=== PATIENT | female | born 1955 | race Caucasian/White ===

== ENCOUNTER 2018-08-12 00:13 | Emergency (ER) | payer OTHER ==
[~2018-08-12] VITALS: Ht 170.2 cm; Wt 68.0 kg
[~2018-08-12 00:13] MED LIST: ASCO500 PO; BUPR150T2 PO; CLON1 PO; CYCL10 PO; ERGO50000 PO; ESTR.1TPBW TOP; GABA800 PO; HYDR1TAB94 PO; IBUP400 PO; METO50ER PO; Multivitamin1 EAC1 PO; OMEP20ER PO; PARO20 PO; PRESERVISION A1 EACH PO; PROP60 PO; Percocet 5-3251 EACH PO; ZOLP10 PO
[2018-08-12 00:36] LABS: BASOPHILS ABSOLUTE AUTO 0.02 K/mm3 (0.00-0.23); BASOPHILS PERCENT AUTO 0 % (0-2); EOSINOPHILS ABSOLUTE AUTO 0.01 K/mm3 (0.00-0.68); EOSINOPHILS PERCENT AUTO 0 % (0-6); Hematocrit 42.6 % (33.0-51.0); Hemoglobin 14.3 g/dL (11.5-16.0); IMMATURE GRAN ABSOLUTE AUTO 0.03 K/mm3 (0.00-0.10); IMMATURE GRAN PERCENT AUTO 0 % (0-1); LYMPHOCYTES ABSOLUTE AUTO 0.85 K/mm3 (0.84-5.20); LYMPHOCYTES PERCENT AUTO 8 % (21-46); MONOCYTES ABSOLUTE AUTO 0.39 K/mm3 (0.16-1.47); MONOCYTES PERCENT AUTO 4 % (4-13); Mean Corpuscular HGB 32.2 pg (26.0-34.0); Mean Corpuscular HGB Conc 33.6 g/dL (31.5-36.5); Mean Corpuscular Volume 96 fL (80-100); Mean Platelet Volume 9.6 fL (9.1-12.4); NEUTROPHILS ABSOLUTE AUTO 8.76 K/mm3 (1.96-9.15); NEUTROPHILS PERCENT AUTO 87 % (41-73); Platelet Count 167 K/mm3 (150-400); RDW Coefficient Variation 12.6 % (11.7-14.2); RDW Standard Deviation 44.3 fL (35.1-46.3); Red Blood Cell Count 4.44 M/mm3 (3.80-5.20); White Blood Cell Count 10.06 K/mm3 (4.00-11.30)
[2018-08-12 00:53] LABS: Alanine Aminotransfer (ALT/SGP 18 U/L (12-78); Albumin, Blood 3.6 g/dL (3.4-5.0); Albumin/Globulin Ratio 0.9 (0.8-1.8); Alk Phos 164 U/L (50-136); Anion Gap 8 mmol/L (6-16); Aspartate Aminotrans (AST/SGOT 38 U/L (12-37); Bilirubin, Total 0.7 mg/dL (0.1-1.0); Blood Urea Nitrogen 8 mg/dL (8-24); Bun/Creatinine Ratio 12.3 (12.0-20.0); CO2, Blood 23 mmol/L (21-32); Calcium, Blood 8.5 mg/dL (8.5-10.1); Chloride, Blood 102 mmol/L (98-108); Creatinine, Blood 0.65 mg/dL (0.40-1.00); Globulin, Blood 3.9 g/dL (2.2-4.0); Glomerular Filtration Rate >60 (60-); Glucose, Blood 97 mg/dL (70-99); Potassium, Blood 4.8 mmol/L (3.5-5.5); Sodium, Blood 133 mmol/L (136-145); Total Protein, Blood 7.5 g/dL (6.4-8.2)
[2018-08-12 00:55] LABS: Influenza A Negative (NEGATIVE); Influenza B Negative (NEGATIVE)
[2018-08-12 01:37] LABS: Source, Urine Clean Catch
[2018-08-12 01:39] LABS: Bilirubin, Urine Neg (Neg); Blood, Urine 1+ (Neg); Glucose Qualitative, Urine Neg (Neg); Ketones, Urine 2+ (Neg); Leukocyte Esterase, Urine Neg (Neg); Nitrite, Urine Neg (Neg); Protein, Urine Neg (Neg); Specific Gravity, Urine 1.015 (1.003-1.022); Urobilinogen, Urine NORM (Normal)
[2018-08-12 01:44] LABS: Appearance, Urine Clear (Clear); Bacteria Rare /hpf; Color, Urine Yellow (P-Yellow); Red Blood Cells, Urine 0-2 /hpf (0-2); Squamous Epithelial Cells Rare /hpf (Few); White Blood Cells, Urine 0-2 /hpf (0-5)
== END 2018-08-12 02:27 | disposition home or self-care (01) ==
LOC: ER 00:13
PROVIDERS: Emergency Medicine
DX: R55 Syncope and collapse (principal); B34.9 Viral infection, unspecified; Z79.899 Other long term (current) drug therapy
CPT/HCPCS: 80053; 81001; 83690; 85025; 87804; 93005; 93010; 96360; 96361; 99284-25; J7030

== ENCOUNTER → 2019-11-30 | Outpatient (CLI) | payer OTHER ==
[2019-12-01 11:47] LABS: Candida species (DNA Probe) Negative (NEGATIVE); G. vaginalis (DNA Probe) Negative (NEGATIVE); T. vaginalis (DNA Probe) Negative (NEGATIVE)
== END | disposition home or self-care (01) ==
LOC: LAB SHORT 09:40 → LAB 09:40
PROVIDERS: Obstetrics & Gynecology
DX: N76.0 Acute vaginitis (principal)
CPT/HCPCS: 87480; 87510; 87660

== ENCOUNTER 2021-12-03 08:38 | Day surgery (SDC) | payer OTHER ==
[~2021-12-03] VITALS: Ht 160 cm; Wt 68.5 kg
[~2021-12-03 08:38] MED LIST changes: +AMLO5 PO; +GABA600 PO; +MOBIC15 MG PO; +NITR.4SL SL; +SUCR1 PO; +VENL150ER PO
[2021-12-03] MEDS ORDERED: CELE100 (08:56)
[2021-12-03] MEDS ORDERED: BUPR150ER (08:56)
== END 2021-12-03 10:35 | disposition home or self-care (01) ==
LOC: ORSCSDS 08:38
PROVIDERS: Student in an Organized Health Care Education/Training Program
PROC: 0D758ZZ Dilation of Esophagus, Via Natural or Artificial Opening Endoscopic (ICD-10-PCS; principal; 2021-12-03 13:15)
PROC: 0DB68ZX Excision of Stomach, Via Natural or Artificial Opening Endoscopic, Diagnostic (ICD-10-PCS; principal; 2021-12-03 13:15)
PROC: 0DB58ZX Excision of Esophagus, Via Natural or Artificial Opening Endoscopic, Diagnostic (ICD-10-PCS; principal; 2021-12-03 13:15)
DX: R13.10 Dysphagia, unspecified (principal); K29.70 Gastritis, unspecified, without bleeding; K21.9 Gastro-esophageal reflux disease without esophagitis; Z79.899 Other long term (current) drug therapy
CPT/HCPCS: 88305; 88342; J2704; J7120

== ENCOUNTER → 2023-10-30 | Outpatient (CLI) | payer OTHER ==
[~2023-10-30] MED LIST changes: +BUPR150ER; +CELE100; +PANTOPRAZOLE SO40 M2 PO
[2023-11-02 11:25] LABS: 6-ACETYLMORPHINE, URN, QUANT <10 ng/mL; CODEINE, URN, QUANT <20 ng/mL; HYDROCODONE, URN, QUANT 90 ng/mL; HYDROMORPHONE, URN, QUANT <20 ng/mL; MORPHINE, URN, QUANT <20 ng/mL; NORHYDROCODONE, URN, QUANT 501 ng/mL; NOROXYCODONE, URN, QUANT <20 ng/mL; NOROXYMORPHONE, URN, QUANT <20 ng/mL; OXYCODONE, URN, QUANT <20 ng/mL; OXYMORPHONE, URN, QUANT <20 ng/mL
== END ==
LOC: LAB 13:16 → LAB SHORT 13:16
PROVIDERS: Hospitalist
DX: Z51.81 Encounter for therapeutic drug level monitoring (principal); Z79.891 Long term (current) use of opiate analgesic
CPT/HCPCS: G0480

== ENCOUNTER 2024-10-06 07:46 | Day surgery (SDC) | payer OTHER ==
[~2024-10-06] VITALS: Ht 160 cm; Wt 71.4 kg
[~2024-10-06 07:46] MED LIST changes: +Balanced Salt Epinephrine Irrigation Solution 500 mL IR SCH; +Lidocaine HCl/Pf 1% 5 ML VIAL XX SCH; +Moxifloxacin HCL 0.5 MG/0.1 ML 0.4MLSYR RIGHTEYE SCH; +PHENYLEPHRINE\\TROPICAMIDE\\TETRACAINE OPHTHALMIC DILATING SOLN RIGHTEYE PRN; +Povidone-Iodine 450 DROP/30 ML Solution ONE; +Povidone-Iodine 450 DROP/30 ML Solution RIGHTEYE SCH; +Tetracaine HCl/Pf 0.5% Opth Soln 4 ml ONE; +Triamcinolone Inj Susp 40 MG / ML 1ML Vial INJ SCH; +Triamcinolone Inj Susp 40 MG / ML 1ML Vial ONE
[2024-10-06] MEDS ORDERED: OLMESARTAN MEDOX5 MG (08:23)
[2024-10-06] MEDS ORDERED: Midazolam HCl 1MG / ML 2ML Vial ONE (08:55)
[2024-10-06 09:23] VITALS: BP 127/75
== END 2024-10-06 09:38 | disposition home or self-care (01) ==
LOC: ORSCSDS 07:46
PROVIDERS: Ophthalmology
PROC: 08RJ3JZ Replacement of Right Lens with Synthetic Substitute, Percutaneous Approach (ICD-10-PCS; principal; 2024-10-06 09:00)
DX: H25.813 Combined forms of age-related cataract, bilateral (principal); I10 Essential (primary) hypertension; Z79.899 Other long term (current) drug therapy
CPT/HCPCS: J2250; J3301; V2632

== ENCOUNTER 2024-10-13 06:13 | Day surgery (SDC) | payer OTHER ==
[~2024-10-13] VITALS: Ht 157.5 cm; Wt 71.9 kg
[~2024-10-13 06:13] MED LIST changes: +Moxifloxacin HCL 0.5 MG/0.1 ML 0.4MLSYR LEFTEYE SCH; -Moxifloxacin HCL 0.5 MG/0.1 ML 0.4MLSYR RIGHTEYE SCH; +OLMESARTAN MEDOX5 MG; +PHENYLEPHRINE\\TROPICAMIDE\\TETRACAINE OPHTHALMIC DILATING SOLN LEFTEYE PRN; -PHENYLEPHRINE\\TROPICAMIDE\\TETRACAINE OPHTHALMIC DILATING SOLN RIGHTEYE PRN; +Povidone-Iodine 450 DROP/30 ML Solution LEFTEYE SCH; -Povidone-Iodine 450 DROP/30 ML Solution RIGHTEYE SCH; -Triamcinolone Inj Susp 40 MG / ML 1ML Vial ONE
[2024-10-13] MEDS ORDERED: Midazolam HCl 1MG / ML 2ML Vial ONE ×2 (06:33→06:36)
[2024-10-13] MEDS ORDERED: Triamcinolone Inj Susp 40 MG / ML 1ML Vial ONE (06:44)
[2024-10-13] MEDS ORDERED: Lidocaine HCl/Pf 1% 5 ML VIAL ONE (06:44)
--- NOTE | 2024-10-13 06:56 | NUR ---
10/13/24 0656 Moose Rojas TETRACAINE ADMINISTERED [id number], PLEDGET PLACED [id number]
[2024-10-13 07:53] VITALS: BP 136/82
== END 2024-10-13 08:08 | disposition home or self-care (01) ==
LOC: ORSCSDS 06:13
PROVIDERS: Ophthalmology
PROC: 08RK3JZ Replacement of Left Lens with Synthetic Substitute, Percutaneous Approach (ICD-10-PCS; principal; 2024-10-13 07:30)
DX: H25.812 Combined forms of age-related cataract, left eye (principal); Z96.1 Presence of intraocular lens; I10 Essential (primary) hypertension; H04.123 Dry eye syndrome of bilateral lacrimal glands; Z79.899 Other long term (current) drug therapy
CPT/HCPCS: J2003; J2250; J3301; V2632